=== PATIENT | male | born 1990 | race African-American/Black ===

== ENCOUNTER 2017-11-12 11:39 | Emergency (ER) | payer MEDICAID ==
[~2017-11-12] VITALS: Ht 170.2 cm; Wt 102.0 kg
[2017-11-12] MEDS ORDERED: [UNRECOGNIZED DRUG - OTHER] (11:50)
[2017-11-12] MEDS ORDERED: LABE100T PO (11:50)
[2017-11-12] MEDS ORDERED: EPOE10005 IJ (11:50)
[2017-11-12] MEDS ORDERED: NIFE60TA77 PO (11:50)
[2017-11-12] MEDS ORDERED: CLON0.1T PO (11:50)
[2017-11-12] MEDS ORDERED: CELL5 PO (11:50)
[2017-11-12] MEDS ORDERED: PRED5TAB48 PO (11:50)
[2017-11-12] MEDS ORDERED: RANI150T7 PO (11:50)
[2017-11-12 12:21] LABS: CHLORIDE 104 mEq/L (98-107)
[2017-11-12 12:24] LABS: INR 1.1; PROTHROMBIN TIME 11.9 sec (9.4-11.6)
[2017-11-12 12:26] LABS: HEMATOCRIT. 33.6 % (42.0-52.0); HEMOGLOBIN. 10.9 g/dL (14.0-18.0); MEAN CORPUSCULAR HEMOGLOBIN 27.1 pg (28.0-32.0); MEAN CORPUSCULAR VOLUME 83.5 fL (80.0-94.0); MEAN PLATELET VOLUME 7.4 fl (7.4-10.4); PLATELET 306 x1000/uL (130-400); RED BLOOD CELL COUNT 4.02 mill/uL (4.7-6.1); RED CELL DISTRIBUTION WIDTH 15.2 % (11.6-14.6)
[2017-11-12 13:25] VITALS: BP 153/101
[2017-11-12 14:06] LABS: PLATELET ESTIMATE NORMAL
== END 2017-11-12 13:37 | disposition home or self-care (01) ==
LOC: ER 12:43
DX: J02.0 Streptococcal pharyngitis (principal); I12.9 Hypertensive chronic kidney disease with stage 1 through stage 4 chronic kidney disease, or unspecified chronic kidney disease; N18.9 Chronic kidney disease, unspecified; D64.9 Anemia, unspecified; Z94.0 Kidney transplant status; R62.50 Unspecified lack of expected normal physiological development in childhood; Z98.890 Other specified postprocedural states; Z79.899 Other long term (current) drug therapy
CPT/HCPCS: 36415; 80053; 83690; 85025; 85610; 87804; 99284

== ENCOUNTER 2023-06-03 20:24 | Emergency (ER) | payer MEDICAID, OTHER ==
[~2023-06-03 20:24] MED LIST: CELL5 PO; CLON0.1T PO; EPOE10005 IJ; LABE100T9 PO; NIFE-127 PO; PRED5TAB48 PO; RANI150T7 PO; [UNRECOGNIZED DRUG - OTHER]
[2023-06-03 20:45] VITALS: PULSE 87
[2023-06-03] MEDS ORDERED: AMOX1TAB16 MT (21:11)
== END 2023-06-03 21:31 | disposition home or self-care (01) ==
LOC: ER 20:24
DX: H66.92 Otitis media, unspecified, left ear (principal); I12.9 Hypertensive chronic kidney disease with stage 1 through stage 4 chronic kidney disease, or unspecified chronic kidney disease; N18.9 Chronic kidney disease, unspecified; Z98.890 Other specified postprocedural states
CPT/HCPCS: 99283